=== PATIENT | male | born 1950 | race Caucasian/White ===

== ENCOUNTER 2018-05-03 20:52 | Emergency (ER) | payer MEDICARE, BC ==
--- NOTE | 2018-05-03 21:50 | EDM.PDOC ---
ED HPI GENERAL MEDICAL PROBLEM - General Chief Complaint: Genitourinary Problem Stated Complaint: BLOOD IN URINE Time Seen by Provider: 05/03/18 21:15 Source of Information: Reports: Patient History Limitations: Reports: No Limitations - History of Present Illness INITIAL COMMENTS - FREE TEXT/NARRATIVE: 67-year-old male presents for evaluation and treatment of hematuria. Patient reports that the hematuria started suddenly this evening about 30 minutes prior to arrival in the ER. He is appreciated blood in his urine but no clots. He states he never had anything like this before. He denies any associated symptoms of dysuria, abdominal pain, back pain, dizziness, lightheadedness, night sweats, unintentional weight loss or weight gain. Reports some minor irritation with urination but no dysuria. He denies any increased urinary frequency or trouble initiating urination. Patient states he takes aspirin and NSAIDs on occasion but is not on any blood thinners. Patient is not a smoker. Patient reports he has an appointment with his primary care provider, Dr. Jarrett , on May 09 to evaluate possible sciatica. Onset: Today, Sudden - Related Data Allergies Allergy/AdvReac Type Severity Reaction Status Date / Time No Known Allergies Allergy Verified 05/03/18 21:02 Home Meds: Home Meds Acetaminophen/oxyCODONE [Percocet 325-5 MG] 1 each PO Q6HR PRN #15 tab 05/03/18 [Rx] Past Medical History - Past Health History Medical/Surgical History: Denies Medical/Surgical History Social & Family History - Tobacco Use Smoking Status *Q: Never Smoker - Caffeine Use Caffeine Use: Reports: Coffee, Tea - Recreational Drug Use Recreational Drug Use: No ED ROS GENERAL - Review of Systems Review Of Systems: See Below Constitutional: Denies: Fever, Chills, Night Sweats, Weight Loss, Weight Gain Cardiovascular: Denies: Lightheadedness GI/Abdominal: Denies: Abdominal Pain : Reports: Hematuria. Denies: Dysuria, Flank Pain Musculoskeletal: Denies: Back Pain Neurological: Denies: Dizziness ED EXAM, RENAL/ - Physical Exam Exam: See Below Exam Limited By: No Limitations General Appearance: Alert, WD/WN, No Apparent Distress Throat/Mouth: Normal Inspection, Normal Voice, No Airway Compromise Neck: Normal Inspection Respiratory/Chest: No Respiratory Distress, Lungs Clear Cardiovascular: Normal Peripheral Pulses, No Murmur, Tachycardia GI/Abdominal: Normal Bowel Sounds, Soft, Non-Tender Back Exam: Normal Inspection. No: CVA Tenderness (L), CVA Tenderness (R) Neurological: Alert, Oriented, Normal Cognition Psychiatric: Normal Affect, Normal Mood Skin Exam: Warm, Dry, Normal Color Course - Vital Signs Last Recorded V/S: Last Vital Signs Temp 97.5 F 05/03/18 21:00 Pulse 109 H 05/03/18 21:00 Resp 20 05/03/18 21:00 BP 186/102 H 05/03/18 21:00 Pulse Ox 99 05/03/18 21:00 - Orders/Labs/Meds Orders: Active Orders 24 hr Category Date Time Status Abdomen Pelvis wo Cont [CT] Stat Exams 05/03/18 22:13 Taken CULTURE URINE [RM] Stat Lab 05/03/18 23:38 Ordered UA W/MICROSCOPIC [URIN] Stat Lab 05/03/18 21:26 Ordered Labs: Laboratory Tests 05/03/18 05/03/18 05/03/18 Range/Units 21:26 22:20 22:20 WBC 10.02 H (4.23-9.07) K/mm3 RBC 5.00 (4.63-6.08) M/mm3 Hgb 14.3 (13.7-17.5) gm/L Hct 41.6 (40.1-51.0) % MCV 83.2 (79.0-92.2) fl MCH 28.6 (25.7-32.2) pg MCHC 34.4 (32.2-35.5) g/dl RDW Std Deviation 40.8 (35.1-43.9) fL Plt Count 207 (163-337) K/mm3 MPV 9.3 L (9.4-12.3) fl Neut % (Auto) 78.7 H (34.0-67.9) % Lymph % (Auto) 11.3 L (21.8-53.1) % [place] % (Auto) 8.3 (5.3-12.2) % Eos % (Auto) 1.2 (0.8-7.0) Baso % (Auto) 0.4 (0.1-1.2) % Neut # (Auto) 7.89 H (1.78-5.38) K/mm3 Lymph # (Auto) 1.13 L (1.32-3.57) K/mm3 [place] # (Auto) 0.83 H (0.30-0.82) K/mm3 Eos # (Auto) 0.12 (0.04-0.54) K/mm3 Baso # (Auto) 0.04 (0.01-0.08) K/mm3 Sodium 147 H (136-145) mEq/L Potassium 3.3 L (3.5-5.1) mEq/L Chloride 109 H (98-107) mEq/L Carbon Dioxide 25 (21-32) mEq/L Anion Gap 16.3 H (5-15) BUN 20 H (7-18) mg/dL Creatinine 1.1 (0.7-1.3) mg/dL Est Cr Clr Drug Dosing 60.42 mL/min Estimated GFR (MDRD) > 60 (>60) mL/min BUN/Creatinine Ratio 18.2 H (14-18) Glucose 100 (80-115) mg/dL Calcium 8.9 (8.5-10.1) mg/dL Total Bilirubin 0.7 (0.2-1.0) mg/dL AST 64 H (15-37) U/L ALT 35 (16-63) U/L Alkaline Phosphatase 66 (46-116) U/L Total Protein 7.3 (6.4-8.2) g/dl Albumin 4.0 (3.4-5.0) g/dl Globulin 3.3 gm/dL Albumin/Globulin Ratio 1.2 (1-2) Urine Color Cristine H (Yellow) Urine Appearance Turbid H (Clear) Urine pH 5.5 (5.0-8.0) Ur Specific [place] 1.025 (1.005-1.030) Urine Protein 3+ H (Negative) Urine Glucose (UA) Negative (Negative) Urine Ketones 1+ H (Negative) Urine Occult Blood 3+ H (Negative) Urine Nitrite Negative (Negative) Urine Bilirubin 3+ H (Negative) Urine Urobilinogen 2.0 H (0.2-1.0) Ur Leukocyte Esterase 3+ H (Negative) Urine RBC Too numerous to cnt H (0-5) /hpf Urine WBC 10-20 H (0-5) /hpf Ur Epithelial Cells 0-5 (0-5) /hpf Urine Bacteria Few (FEW) /hpf Urine Mucus Few (FEW) /hpf - Radiology Interpretation Free Text/Narrative:: CT of the abdomen and pelvis without contrast impression per vrad: 8mm right UPJ stone causing mild to moderate hydronephrosis - Re-Assessments/Exams Free Text/Narrative Re-Assessment/Exam: 05/03/18 22:19 Reviewed the UA results with the patient. Case discussed with Dr. Vasques, ER physician, recommended CBC, CMP and CT without contrast to further evaluate. Recommended urine culture. Discussed with the patient he is agreeable to a further work-up. 05/03/18 23:20 Reviewed the labs and imaging with the patient. He continues to be pain free. Will give a few pain pills if he does develop pain. Recommend close follow-up with urology. Discharge instructions as documented. Departure - Departure Time of Disposition: 23:22 Disposition: Home, Self-Care 01 Condition: Good Clinical Impression: Nephrolithiasis, Horseshoe kidney - Discharge Information *PRESCRIPTION DRUG MONITORING PROGRAM REVIEWED*: No *COPY OF PRESCRIPTION DRUG MONITORING REPORT IN PATIENT RAZIA: No Prescriptions: Acetaminophen/oxyCODONE [Percocet 325-5 MG] 1 each PO Q6HR PRN #15 tab PRN Reason: Pain Instructions: Kidney Stones, [id number] Referrals: Paulino Jarrett Jr, MD [Primary Care Provider] - Gissel Silverio MD [Consulting Physician] - Forms: ED Department Discharge Additional Instructions: Follow-up with urology. Call [phone] to schedule with a urologist. Recommend Dr. Silverio. Drink plenty of fluids. Percocet if needed for pain. Take 1-2 tabs PO every 5 hours prn pain. Percocet is habit forming, take as few as needed to control your pain. Do not drive or operate machinery within 10 hours of taking percocet. Please return to the ER should your symptoms change or worsen. - My Orders Last 24 Hours: My Active Orders 05/03/18 21:26 UA W/MICROSCOPIC [URIN] Stat 05/03/18 22:13 Abdomen Pelvis wo Cont [CT] Stat 05/03/18 23:38 CULTURE URINE [RM] Stat - Assessment/Plan Last 24 Hours: My Active Orders 05/03/18 21:26 UA W/MICROSCOPIC [URIN] Stat 05/03/18 22:13 Abdomen Pelvis wo Cont [CT] Stat 05/03/18 23:38 CULTURE URINE [RM] Stat
== END 2018-05-03 23:40 | disposition home or self-care (01) ==
LOC: JD.ED 20:52
DX: N13.2 Hydronephrosis with renal and ureteral calculous obstruction (principal)
CPT/HCPCS: 36415; 74176; 80053; 81001; 85025; 87086; 99284; 99284-25

== ENCOUNTER 2021-01-28 21:40 | Emergency (ER) | payer MEDICARE, BC ==
--- NOTE | 2021-01-28 22:57 | EDM.PDOC ---
ED HPI GENERAL MEDICAL PROBLEM - General Chief Complaint: Genitourinary Problem Stated Complaint: BLOOD IN URINE Time Seen by Provider: 01/28/21 22:51 - History of Present Illness INITIAL COMMENTS - FREE TEXT/NARRATIVE: 70-year-old male returns the emergency room with what he believes is blood in his urine. Couple hours ago the patient voided and had some brownish-red urine. Last time he did this he had a kidney stone that had to be removed. Patient has a history of the prior kidney stone several years ago he has a horseshoe kidney. The patient does not have any pain, however, he had no pain with his last kidney stone. Patient has not had any fevers or chills. - Related Data Allergies Allergy/AdvReac Type Severity Reaction Status Date / Time No Known Allergies Allergy Verified 05/03/18 21:02 Home Meds: Home Meds Acetaminophen/oxyCODONE [Percocet 325-5 MG] 1 each PO Q6HR PRN #15 tab 05/03/18 [Rx] Past Medical History - Past Health History Medical/Surgical History: Denies Medical/Surgical History Genitourinary History: Reports: Renal Calculus, Other (See Below) Other Genitourinary History: History of kidney stone. Had stone removed in [place] in 2018 - Infectious Disease History Infectious Disease History: Reports: Chicken Pox, Measles - Past Surgical History Male Surgical History: Reports: Kidney Stone Extraction Social & Family History - Caffeine Use Caffeine Use: Reports: None - Recreational Drug Use Recreational Drug Use: No ED ROS GENERAL - Review of Systems Review Of Systems: See Below Constitutional: Reports: No Symptoms Respiratory: Reports: No Symptoms Cardiovascular: Reports: No Symptoms GI/Abdominal: Reports: No Symptoms : Reports: Hematuria Musculoskeletal: Reports: No Symptoms ED EXAM, GENERAL - Physical Exam Exam: See Below Exam Limited By: No Limitations General Appearance: Alert, No Apparent Distress Head: Atraumatic, Normocephalic Neck: Normal Inspection, Supple, Non-Tender, Full Range of Motion Respiratory/Chest: No Respiratory Distress, Lungs Clear, Normal Breath Sounds Cardiovascular: Regular Rate, Rhythm, No Edema, No Murmur GI/Abdominal: Normal Bowel Sounds, Soft, Non-Tender. No: Guarding, Rigid, Rebound Back Exam: Normal Inspection. No: CVA Tenderness (L), CVA Tenderness (R) Extremities: Normal Inspection, No Pedal Edema Neurological: Alert, Oriented, Normal Cognition Course - Vital Signs Last Recorded V/S: Last Vital Signs Temp 36.4 C 01/28/21 22:05 Pulse 98 01/28/21 22:05 Resp 16 01/28/21 22:05 BP 206/113 H 01/28/21 22:05 Pulse Ox 100 01/28/21 22:05 - Orders/Labs/Meds Orders: Active Orders 24 hr Category Date Time Status Abdomen Pelvis wo Cont [CT] Stat Exams 01/28/21 23:06 Taken CULTURE URINE [MREF] Stat Lab 01/28/21 20:15 Received Labs: Laboratory Tests 01/28/21 01/28/21 01/28/21 Range/Units 22:15 23:15 23:15 WBC 7.69 (4.23-9.07) K/mm3 RBC 5.24 (4.63-6.08) M/mm3 Hgb 15.0 (13.7-17.5) gm/dl Hct 44.1 (40.1-51.0) % MCV 84.2 (79.0-92.2) fl MCH 28.6 (25.7-32.2) pg MCHC 34.0 (32.2-35.5) g/dl RDW Std Deviation 42.0 (35.1-43.9) fL Plt Count 213 (163-337) K/mm3 MPV 10.2 (9.4-12.3) fl Neut % (Auto) 74.2 H (34.0-67.9) % Lymph % (Auto) 15.5 L (21.8-53.1) % [place] % (Auto) 8.2 (5.3-12.2) % Eos % (Auto) 1.4 (0.8-7.0) Baso % (Auto) 0.4 (0.1-1.2) % Neut # (Auto) 5.71 H (1.78-5.38) K/mm3 Lymph # (Auto) 1.19 L (1.32-3.57) K/mm3 [place] # (Auto) 0.63 (0.30-0.82) K/mm3 Eos # (Auto) 0.11 (0.04-0.54) K/mm3 Baso # (Auto) 0.03 (0.01-0.08) K/mm3 Sodium 145 (136-145) mEq/L Potassium 3.6 (3.5-5.1) mEq/L Chloride 107 (98-107) mEq/L Carbon Dioxide 28 (21-32) mEq/L Anion Gap 13.6 (5-15) BUN 16 (7-18) mg/dL Creatinine 1.1 (0.7-1.3) mg/dL Est Cr Clr Drug Dosing 58.00 mL/min Estimated GFR (MDRD) > 60 (>60) mL/min BUN/Creatinine Ratio 14.5 (14-18) Glucose 97 (70-99) mg/dL Calcium 8.9 (8.5-10.1) mg/dL Total Bilirubin 0.6 (0.2-1.0) mg/dL AST 24 (15-37) U/L ALT 31 (16-63) U/L Alkaline Phosphatase 76 (46-116) U/L Total Protein 7.9 (6.4-8.2) g/dl Albumin 4.3 (3.4-5.0) g/dl Globulin 3.6 gm/dL Albumin/Globulin Ratio 1.2 (1-2) Urine Color Yellow (Yellow) Urine Appearance Slt cloudy H (Clear) Urine pH 7.5 (5.0-8.0) Ur Specific [place] 1.025 (1.005-1.030) Urine Protein Negative (Negative) Urine Glucose (UA) Negative (Negative) Urine Ketones Negative (Negative) Urine Occult Blood 2+ H (Negative) Urine Nitrite Negative (Negative) Urine Bilirubin Negative (Negative) Urine Urobilinogen 0.2 (0.2-1.0) Ur Leukocyte Esterase Negative (Negative) Urine RBC 75-100 H (0-5) /hpf Urine WBC Not seen (0-5) /hpf Ur Squamous Epith Cells Not seen (0-5) /hpf Urine Bacteria Rare (FEW) /hpf Urine Mucus Not seen (FEW) /hpf - Re-Assessments/Exams Free Text/Narrative Re-Assessment/Exam: 01/29/21 02:36 CT shows no evidence of obstructing renal stones he has stones noted in his horseshoe kidney but no stones in the ureter. Urinalysis does not appear infected however he does have significant microscopic hematuria. Culture pending on the urine with his lack of symptoms will not treat. Did discuss the findings of everything with the patient and he voices understanding. Departure - Departure Time of Disposition: 02:37 Disposition: Home, Self-Care 01 Clinical Impression: History of kidney stones, Hematuria - Discharge Information Referrals: Ap Kaur MD [Primary Care Provider] - Forms: ED Department Discharge Additional Instructions: Return to the emergency room with any questions problems or worsening symptoms. As we discussed due to the pandemic it sounds like you are overdue to follow-up with your urologist. Please get follow-up scheduled. Push plenty of fluids. Sepsis Event Note (ED) - Evaluation Sepsis Screening Result: No Definite Risk - Focused Exam Vital Signs: Vital Signs Temp Pulse Resp BP Pulse Ox 01/28/21 22:05 36.4 C 98 16 206/113 H 100 - My Orders Last 24 Hours: My Active Orders 01/28/21 20:15 CULTURE URINE [MREF] Stat 01/28/21 23:06 Abdomen Pelvis wo Cont [CT] Stat - Assessment/Plan Last 24 Hours: My Active Orders 01/28/21 20:15 CULTURE URINE [MREF] Stat 01/28/21 23:06 Abdomen Pelvis wo Cont [CT] Stat
--- NOTE | 2021-01-29 16:34 | CT ---
CT abdomen and pelvis Technique: Multiple axial sections were obtained from above the dome of the diaphragm inferiorly through the pubic symphysis. Intravenous and oral contrast was not utilized. Study has been performed as a ureteral stone protocol. Findings: Both kidneys are seen and show evidence of horseshoe fusion of the lower poles. Multiple small nonobstructing calculi are seen within both kidneys. Mildly dilated right renal pelvis is seen which exits into a nondilated ureter. Left ureter is also nondilated. No abnormal calcification is seen within the course of the ureters. Visualized lung bases shows nothing acute. Low-density lesion is noted within the right lobe of the liver measuring 1.1 cm in size. Liver is otherwise unremarkable. Spleen size is normal. Adrenal glands show no nodule. Multiple calcified gallstones are seen within the gallbladder. No biliary duct dilatation is seen. Pancreas shows no abnormality. Aorta shows atherosclerotic change without aneurysm. No retroperitoneal adenopathy or mesenteric abnormalities are seen. Mild diverticulosis is noted within the sigmoid colon. No free fluid or inflammatory change is appreciated. Appendix is seen which is normal in size. Bone window settings were reviewed which show degenerative disc space narrowing at L5-S1 and L4-5 with vacuum phenomena. No acute osseous abnormality is appreciated. Impression: 1. Bilateral renal calculi within horseshoe kidney. Right renal pelvis is mildly dilated and exits into a nondilated right ureter. No findings of ureteral stone are appreciated. 2. Gallstones within the gallbladder. 3. Other findings believed to be incidental as noted above. Diagnostic code #2 I agree with preliminary report from [facility], finalized on 01/29/21, 1:33 AM CDT, code 1
== END 2021-01-29 02:45 | disposition home or self-care (01) ==
LOC: JD.ED 21:40
DX: R31.9 Hematuria, unspecified (principal); Z87.442 Personal history of urinary calculi
CPT/HCPCS: 36415; 74176; 74176-26; 80053; 81001; 85025; 87086; 99283; 99284-25

== ENCOUNTER 2021-07-01 22:12 | Emergency (ER) | payer MEDICARE, BC ==
--- NOTE | 2021-07-01 23:06 | EDM.PDOC ---
ED HPI GENERAL MEDICAL PROBLEM - General Chief Complaint: Genitourinary Problem Stated Complaint: BLOOD IN URINE Time Seen by Provider: 07/01/21 23:06 - History of Present Illness INITIAL COMMENTS - FREE TEXT/NARRATIVE: 70-year-old male presents the emergency room with blood in his urine. Patient had a single episode of a large amount of blood in his urine. Patient has a significant history of horseshoe kidney he has kidney stones within this. He has been followed by urology. I have seen this gentleman in the past with this he did not have any obstructing stones at that time. The patient is not having any pain with this at this time. Urology does not believe he will pass the stones in the future but the patient is on a diet to prevent the stones from getting larger so they do not have to operate to remove the stones from the kidney. It sounds as though they are trying to prevent staghorn calculus. Patient is not having any fevers or chills otherwise feels well. Patient had blood work done a couple of weeks ago and is scheduled to have some more blood work done in the next week or so. Bladder Pain Score (Numeric/FACES): 2 - Related Data Allergies Allergy/AdvReac Type Severity Reaction Status Date / Time No Known Allergies Allergy Verified 07/01/21 23:26 Home Meds: Home Meds Losartan Potassium 100 mg PO DAILY 07/01/21 [History] Cefdinir [Omnicef] 300 mg PO BID #13 cap 07/02/21 [Rx] Cefdinir [Omnicef] 300 mg PO BID #13 cap 07/02/21 [Rx] Past Medical History - Past Health History Medical/Surgical History: Denies Medical/Surgical History Genitourinary History: Reports: Renal Calculus, Other (See Below) Other Genitourinary History: History of kidney stone. Had stone removed in [place] in 2018 - Infectious Disease History Infectious Disease History: Reports: Chicken Pox, Measles - Past Surgical History Male Surgical History: Reports: Kidney Stone Extraction Social & Family History - Caffeine Use Caffeine Use: Reports: None ED ROS GENERAL - Review of Systems Review Of Systems: See Below Constitutional: Reports: No Symptoms Respiratory: Reports: No Symptoms Cardiovascular: Reports: No Symptoms GI/Abdominal: Reports: No Symptoms. Denies: Abdominal Pain : Reports: Hematuria. Denies: Discharge, Dysuria, Flank Pain, Frequency, Pain, Urgency Musculoskeletal: Reports: No Symptoms ED EXAM, GENERAL - Physical Exam Exam: See Below Exam Limited By: No Limitations General Appearance: Alert, No Apparent Distress Respiratory/Chest: No Respiratory Distress, Lungs Clear, Normal Breath Sounds Cardiovascular: Regular Rate, Rhythm, No Edema, No Murmur GI/Abdominal: Normal Bowel Sounds, Soft, Non-Tender Back Exam: Normal Inspection. No: CVA Tenderness (L), CVA Tenderness (R) Course - Vital Signs Last Recorded V/S: Last Vital Signs Temp 37.0 C 07/01/21 23:30 Pulse 83 07/01/21 23:30 Resp 16 07/01/21 23:30 BP 138/85 07/01/21 23:30 Pulse Ox 99 07/01/21 23:30 - Orders/Labs/Meds Orders: Active Orders 24 hr Category Date Time Status CULTURE URINE [MREF] Stat Lab 07/01/21 23:00 Received Labs: Laboratory Tests 07/01/21 Range/Units 23:00 Urine Color Cristine H (Yellow) Urine Appearance Cloudy H (Clear) Urine pH 7.0 (5.0-8.0) Ur Specific [place] 1.025 (1.005-1.030) Urine Protein 2+ H (Negative) Urine Glucose (UA) Negative (Negative) Urine Ketones Trace H (Negative) Urine Occult Blood 3+ H (Negative) Urine Nitrite Positive H (Negative) Urine Bilirubin 1+ H (Negative) Urine Urobilinogen 1.0 (0.2-1.0) Ur Leukocyte Esterase Negative (Negative) U Hyaline Cast (Auto) 5-10 H (0-5) /lpf Urine RBC Too numerous to cnt H (0-5) /hpf Urine WBC 0-5 (0-5) /hpf Ur Epithelial Cells 0-5 (0-5) /hpf Urine Bacteria Moderate H (FEW) /hpf Urine Mucus Not seen (FEW) /hpf Meds: Medications Discontinued Medications Generic Name Dose Route Start Last Admin Trade Name Freq PRN Reason Stop Dose Admin Cefdinir 300 mg 07/02/21 01:12 07/02/21 01:24 Cefdinir 300 Mg Cap PO 07/02/21 01:13 300 mg ONETIME ONE Administration - Re-Assessments/Exams Free Text/Narrative Re-Assessment/Exam: 07/01/21 23:30 At this point do not think laboratory work is can help me other than checking a urine to make sure there is no signs of infection. And I will culture the urine. The patient unlikely has passed a stone he is not having any pain CT is of no benefit at this time his multiple stones in his horseshoe kidney can bleed from time to time. 07/02/21 01:12 Urinalysis is possibly suggestive of infectious processes nitrate positive numerous bacteria seen with few white cells. I will start the patient on Omnicef while waiting for the culture and sensitivity. Departure - Departure Time of Disposition: 01:15 Disposition: Home, Self-Care 01 Clinical Impression: UTI (urinary tract infection) - Discharge Information Prescriptions: Cefdinir [Omnicef] 300 mg PO BID #13 cap Cefdinir [Omnicef] 300 mg PO BID #13 cap Instructions: Urinary Tract Infection, Adult, [id number] Referrals: Ap Kaur MD [Primary Care Provider] - Forms: ED Department Discharge Additional Instructions: Return to the emergency room with any questions problems or worsening symptoms. Your urine was suggestive of a developing UTI you have been started on an antibiotic. Take one of the cefdinir, or Omnicef tablets twice daily your first dose was given here in the emergency room. Follow-up with your regular provider 3 to 5 days after you finish the antibiotics. [facility] your [facility] to [facility] as tomorrow is Saturday and they are the only pharmacy open they will be open between noon and 4 PM Sepsis Event Note (ED) - Focused Exam Vital Signs: Vital Signs Temp Pulse Pulse Resp BP Pulse Ox 07/01/21 23:30 37.0 C 83 78 16 138/85 99 - My Orders Last 24 Hours: My Active Orders 07/01/21 23:00 CULTURE URINE [MREF] Stat - Assessment/Plan Last 24 Hours: My Active Orders 07/01/21 23:00 CULTURE URINE [MREF] Stat
[2021-07-02] MEDS ORDERED: Cefdinir 300 MG Cap PO ONE (01:12)
== END 2021-07-02 01:25 | disposition home or self-care (01) ==
LOC: JD.ED 22:12
DX: N39.0 Urinary tract infection, site not specified (principal); R31.9 Hematuria, unspecified
CPT/HCPCS: 81001; 87086; 99283; A9270

== ENCOUNTER 2022-03-05 14:19 | Emergency (ER) | payer MEDICARE, BC ==
[2022-03-05] MEDS ORDERED: Cephalexin 500 MG Cap PO ONE (16:46)
== END 2022-03-05 16:35 | disposition home or self-care (01) ==
LOC: JD.ED 14:19
DX: N39.0 Urinary tract infection, site not specified (principal)
CPT/HCPCS: 81001; 99283; A9270

== ENCOUNTER 2022-03-23 21:28 | Emergency (ER) | payer MEDICARE, BC | END 2022-03-23 22:50 | disposition home or self-care (01) | LOC: JD.ED 21:28 | DX: R31.9 Hematuria, unspecified (principal); Z79.899 Other long term (current) drug therapy | CPT/HCPCS: 81001; 99283 ==